=== PATIENT | female | born 1975 | race Caucasian/White ===

== ENCOUNTER 2017-01-28 10:48 | Emergency (ER) | payer SELFPAY ==
[~2017-01-28] VITALS: Ht 170.2 cm; Wt 68.2 kg
[~2017-01-28 10:48] MED LIST: ESTR2TAB2 PO; FLUT16SP NS; HYDR-4003 PO; PROP60CA2 PO
[2017-01-28 10:53] VITALS: BP 165/115; PULSE 78; RESP 14; O2SAT 97
--- NOTE | 2017-01-28 11:01 | ED.REPORT ---
HPI-Chest Pain 40 and Over Date of Service Jan 28, 2017 ED Provider: Lukas Haywood DO The pt is a 41 y/o female with hx of HTN who presents to the ED complaining of chest pain onset last night. The pt c/o associated tightness of her right jaw, right ear pain, dry mouth, and right eye pain. Pt states it feels like her "ear is going to pop." The pt describes her chest pain as "tight" and like a "heavy child is sitting on" her, rating her pain as a 3/10. She reports that she is currently on estrogen. Turning her head does not exacerbate the pt's symptoms. Per pt, she has been seeing her PCP recently for symptoms which she describes as "feeling like I'm being electrocuted and chest tightness," but she does not think her symptoms are similar today. The pt's mother of heart attack at age 60 half a year ago. Nursing Notes Stated Complaint: CHEST PAIN Chief Complaint: Chest Pain Nursing Notes Reviewed: Yes Allergies: Coded Allergies: No Known Drug Allergies (Verified Allergy, Unknown, 12/04/15) Scheduled Estradiol (Estradiol) 2 Mg Tablet 2 MG PO DAILY Fluticasone Propionate (Fluticasone Propionate Nasal) 16 Gm Rubicon.susp 2 SPRAY NS BID Propranolol ER (Propranolol ER) 60 Mg Cap.sa.24h 40 MG PO BID Scheduled PRN Hydrocodone-Acetaminophen 5-325 mg (Hydrocodone-Acetaminophen 5-325 mg) 1 Each Tablet 1-2 EACH PO Q4 PRN PRN For Pain Naproxen (Naproxen) 375 Mg Tablet 375 MG PO BID PRN PRN For Pain General Time Seen by MD: 11:00 Chief Complaint Chest pain Hx Obtained From: Patient Arrived By: Walk-in Sudden in Onset?: Yes Onset Occurred: Yesterday Symptom Duration: Since onset Location: : Chest right Quality: Heaviness, Painful Radiation: : Does not radiate Migration/Movement: Reports: None Severity: Current: Pain level 3 out of 10 Severity: Maximum: Moderate Recent Healthcare: Recent doctor visit Similar Sx Previous: No Past Medical History Past Medical History Reports: Hypertension, Denies: Diabetes mellitus Past Surgical History C/s, BTL, elbow pinning, breast Bx x4 Reports: Hysterectomy, Tonsillectomy Family History mother - by heart attack at age 60 Smoking History Light Tobacco Smoker Social History Alcohol Use: Denies alcohol use Drug Use: Denies drug use Ambulatory Status Independent Review of Systems + tightness of the R jaw Constitutional: Denies: Fever Respiratory: Denies: Non-productive cough, Shortness of breath Cardiovascular: Reports: Chest pain Complete sys rev & neg: except as marked. Eyes: Reports: Eye pain right Ears / Nose / Throat: Reports: Earache right Physical Exam Initial Vital Signs Vital Signs (First) Date Time Temp Pulse Resp B/P Pulse Ox O2 Delivery O2 Flow Rate FiO2 01/28/17 10:53 36.4 78 14 165/115 97 Room Air Initial VS: Reviewed Head / Eyes: Atraumatic, Normocephalic Neck: Supple, Full range of motion Extremities: Vascular intact, Neuro intact Skin: Warm, Dry, No cyanosis Neurologic: Alert, Oriented, Nonfocal Psychiatric: Mood/affect normal, Behavior normal General/Constitutional: Awake, Alert Respiratory / Chest: Atraumatic, Breath sounds NL, Breath sounds = bilat Right chest wall tenderness Cardiovascular: Heart rate NL, Regular rhythm, Heart sounds NL Abdomen: Atraumatic, Soft, Non-tender Interpretation & Diagnostics Lab Results Interpretation Result Diagram: 01/28/17 1130 01/28/17 1120 Test 01/28/17 11:20 01/28/17 11:30 D-Dimer < 0.50mg/L FEU (<0.50) Sodium Level 138mEq/L (134-144) Potassium Level 3.9mEq/L (3.5-5.2) Chloride Level 99mEq/L (97-108) Carbon Dioxide Level 24mmol/L (18-29) Blood Urea Nitrogen 11mg/dL (6-24) Creatinine 0.64mg/dL (0.57-1.00) Estimat Glomerular Filtration Rate 145mL/min (>59) Glucose Level 95mg/dL (60-99) Calcium Level 8.9mg/dL (8.5-10.1) Magnesium Level 1.9mg/dL (1.6-2.6) Total Bilirubin 0.4mg/dL (0.0-1.2) Aspartate Amino Transf (AST/SGOT) 19U/L (0-50) Alanine Aminotransferase (ALT/SGPT) 17U/L (0-32) Alkaline Phosphatase 84U/L (25-150) Troponin T 0.010ug/L (0.0-0.011) Pro-B-Type Natriuretic Peptide 29.16pg/mL (0-130) Total Protein 7.1g/dL (6.4-8.4) Albumin 4.1g/dL (3.4-5.0) Hold Baig Top Tube Received (Received) White Blood Count 6.2th/mm3 (3.8-10.1) Red Blood Count 4.43mil/mm3 (3.90-5.20) Hemoglobin 14.5g/dL (12.0-15.6) Hematocrit 42.5% (35.0-46.0) Mean Corpuscular Volume 95.9fL (81-100) Mean Corpuscular Hemoglobin 32.7pg (27.0-35.0) Mean Corpuscular Hemoglobin Concent 34.1% (32.0-37.0) Red Cell Distribution Width 12.4% (12.3-15.4) Platelet Count 314bil/L (150-400) Neutrophils (%) (Auto) 46.3% (40-74) Lymphocytes (%) (Auto) 42.2% (14-46) Monocytes (%) (Auto) 9.5% (4-12) Eosinophils (%) (Auto) 1.0% (0-5) Basophils (%) (Auto) 1.0% (0-3) ECG Interpretation Time: 11:28 Interpreted by: ED physician Normal ECG Interpretation: Normal ECG w/ rate of... (76) X-Ray Chest Interpretation Chest Xray Interpretation: IMPRESSION: No acute disease. Dictated by: Javier Blackmon M.D. on 01/28/2017 at 11:03 View: Portable, 1 view Interpretation / Wet Read by: Interpret - Radiologist Re-Eval/Medical Decision Med Decision/Clinical Course Focal reproducible chest and neck pain with a reassuring cardiac workup. Patient is discharged. Return precautions given. Source of Hx: Old records Time of Eval: 11:43 Re-Evaluation/Progress Note: Pt rechecked, resting comfortably, all questions addressed. Time of Eval: 12:42 Patient Status: Condition improved Re-Evaluation/Progress Note: Pt rechecked. Informed pt of plan for discharge. Pt understands and agrees with plan for discharge. F/U instructions and RTER warnings given. All questions addressed at this time. Counseled Regarding: Diagnosis, Lab results, Need for follow-up, When/why to return to ED Discharge & Departure Primary Impression: Chest pain Chest pain type: unspecified Qualified Code: R07.9 - Chest pain, unspecified Disposition: Home Discharge Condition All VS Reviewed: Yes Condition: Stable Patient Instructions: Angina (ED) Additional Instructions: Your blood test, ECG, x-ray and labs are all reassuring. I suspect that you neck pain is musculoskeletal. Call your primary care provider tomorrow for a follow up appointment this week. Return to the Emergency Department for any new or concerning symptoms. Referrals: Yolis Harrison (PCP) Scribe Attestation Portions of this note were transcribed by Dex Moreira and Josseline Mario. I , Dr. Haywood personally performed the history, physical exam and medical decision-making; I reviewed and confirmed the accuracy of the information in the transcribed note. Signed by: Dex Moreira and Bradford Malone, 01/28/17. copies to: Yolis Harrison Timothy S DO Jan 28, 2017 11:01 Dex Moreira Jan 28, 2017 11:26 Josseline Albert Jan 28, 2017 12:13
[2017-01-28] MEDS ORDERED: Ondansetron 2 mg/mL 2 mL Inj IVPUSH ONE (11:10)
[2017-01-28] MEDS ORDERED: LidocaineVisc 2%:Antacid 1:1 10 mL Syringe PO ONE (11:15)
[2017-01-28 11:49] LABS: MONOCYTES % (AUTO) 9.5 % (4-12); Mean Corpuscular Hemoglobin 32.7 pg (27.0-35.0); Mean Corpuscular Volume 95.9 fL (81-100); NEUTROPHILS % (AUTO) 46.3 % (40-74); Platelet Count 314 bil/L (150-400)
--- NOTE | 2017-01-28 12:06 | DRSVH ---
PROCEDURE: X-RAY CHEST ONE VIEW, PORTABLE ([id number]) INDICATIONS: chest pain TECHNIQUE: One view of the chest was acquired. COMPARISON: [facility], , CHEST 2VW, 03/06/2007, 15:13. FINDINGS: Surgical changes and devices: None. Lungs and pleura: No pleural effusions or pneumothorax. Lungs are clear. Mediastinum: Mediastinal contours appear normal. Heart size is normal. Bones and chest wall: No suspicious bony lesions. Overlying soft tissues appear unremarkable. IMPRESSION: No acute disease. Dictated by: Javier Blackmon M.D. on 01/28/2017 at 11:03 Approved by: Javier Blackmon M.D. on 01/28/2017 at 11:04
[2017-01-28 12:08] LABS: TROPONIN T 0.01 ug/L (0.0-0.011)
[2017-01-28 12:19] VITALS: BP 138/88; PULSE 57; RESP 20; O2SAT 97
[2017-01-28 12:20] LABS: Magnesium 1.9 mg/dL (1.6-2.6)
[2017-01-28] MEDS ORDERED: Ketorolac 15 mg/mL Inj IVPUSH ONE (12:40)
[2017-01-28] MEDS ORDERED: NAPR-873 PO (12:43)
[2017-01-28 12:53] VITALS: BP 151/99; PULSE 64; RESP 16
== END 2017-01-28 12:54 | disposition home or self-care (01) ==
LOC: SED 10:48
DX: R07.89 Other chest pain (principal); H92.01 Otalgia, right ear; H57.11 Ocular pain, right eye; I10 Essential (primary) hypertension; Z90.710 Acquired absence of both cervix and uterus; R68.2 Dry mouth, unspecified; F17.200 Nicotine dependence, unspecified, uncomplicated; Z98.890 Other specified postprocedural states
CPT/HCPCS: 36415; 71010; 80053; 83735; 83880; 84484; 85025; 85378; 93005; 96361; 96374; 96375; 96376; 99285; J2270; J2405